=== PATIENT | female | born 1995 | race Caucasian/White ===

== ENCOUNTER 2016-09-01 00:51 | Emergency (ER) | payer OTHER, BC ==
[2016-09-01 00:55] VITALS: BP 124/77
--- NOTE | 2016-09-01 01:18 | PHYS DOC ---
Adult General Chief Complaint Chief Complaint: scalp laceration HPI HPI Patient is a 21 year old female who presents with complaint of scalp laceration. Patient states that her injury happened at work. Patient states that she hit her her left scalp on a metal display hook at her work which caused a cut. This occurred approximately 1 hour prior to arrival. Patient states that she tried to apply pressure on the wound at home but states that the wound has continued lead. Patient denied any loss of consciousness as a result of her head injury. Patient is up-to-date on her tetanus immunization. Review of Systems Review of Systems Constitutional: Denies fever or chills [] Eyes: Denies change in visual acuity, redness, or eye pain [] HENT: Scalp laceration, denies nasal congestion or sore throat [] Integument: Denies rash or skin lesions [] Neurologic: Denies headache, focal weakness or sensory changes [] Allergies Allergies No known drug allergies Physical Exam Physical Exam Constitutional: Alert, afebrile, no acute distress. [] HENT: Normocephalic, 1 cm superficial laceration to left frontal scalp just superior to hairline, bilateral external ears normal, oropharynx moist, no oral exudates, nose normal. [] Eyes: PERRLA, EOMI, conjunctiva normal, no discharge. [] Skin: Warm, dry, no erythema, no rash. [] Extremities: No tenderness, no cyanosis, no clubbing, ROM intact, no edema. [] Neurologic: Alert and oriented X 3, normal motor function, normal sensory function, no focal deficits noted. [] Current Patient Data Vital Signs Vital Signs Date Time Temp Pulse Resp B/P (MAP) Pulse Ox O2 Delivery O2 Flow Rate FiO2 09/01/16 00:55 98.6 89 18 100 Room Air Lab Results Not performed EKG EKG Not performed [] Radiology/Procedures Radiology/Procedures Indication: Scalp laceration Procedure: The patient was placed in the appropriate position. The area was then cleansed with soap, water, and peroxide. The laceration was closed with a surgical staple. Total repaired wound length: 1 cm. Other Items: Staple count: 1 The patient tolerated the procedure without difficulty. Complications: None.[] Course & Med Decision Making Course & Med Decision Making Pertinent Labs and Imaging studies reviewed. (See chart for details) Patient's laceration was repaired as outlined in the procedure note. Advised patient follow-up in 5-7 days for removal of scalp staple. Advised return emergency department for any worsening symptoms. Patient voiced understanding and in agreement with treatment plan. Dragon Disclaimer Dragon Disclaimer This chart was dictated in whole or in part using Voice Recognition software in a busy, high-work load, and often noisy Emergency Department environment. It may contain unintended and wholly unrecognized errors or omissions. Departure Departure: Impression: Primary Impression: Scalp laceration Disposition: HOME, SELF-CARE Condition: IMPROVED Patient Instructions: Laceration Care, Adult, Staple Care and Removal Additional Instructions: Follow-up with your primary doctor in 5-7 days for removal of your staple. Return to the emergency department for any worsening symptoms. Problem Qualifiers Primary Impression: Scalp laceration Encounter type: initial encounter Qualified Codes: S01.01XA - Laceration without foreign body of scalp, initial encounter DONNA QUINTANILLA MD Sep 01, 2016 01:18
== END 2016-09-01 01:25 | disposition home or self-care (01) ==
LOC: EDBD 00:51 → ER 00:51
DX: S01.01XA Laceration without foreign body of scalp, initial encounter (principal); W45.8XXA Other foreign body or object entering through skin, initial encounter; Y93.89 Activity, other specified; Y99.8 Other external cause status; Y92.89 Other specified places as the place of occurrence of the external cause
CPT/HCPCS: 12001; 99283-25

== ENCOUNTER 2016-09-06 16:26 | Emergency (ER) | payer OTHER, BC ==
[2016-09-06 16:30] VITALS: BP 114/65
--- NOTE | 2016-09-06 17:06 | PHYS DOC ---
General Chief Complaint: SUTURE/STAPLE REMOVAL Stated Complaint: SUTURE REMOVAL Time Seen by MD: 16:37 Source: patient, old records Exam Limitations: no limitations Problems: History of Present Illness Initial Comments Patient is a 21-year-old female comes to the ED for staple removal. Patient states and ED records confirm patient came to the ED 5 days ago with an occipital laceration which was treated with 1 staple. She denies any further symptoms since the wound closure and has come for staple removal only. Timing/Duration: 1 week, other (5 days ago) Severity: mild Modifying Factors: improves with other Associated Symptoms: denies symptoms Past Medical History Medical History: no pertinent history Surgical History: appendectomy, cholecystectomy Social History Smoker: other (smoking status unknown) Alcohol: occasionally Drugs: none Review of Systems Constitutional: denies chills, denies diaphoresis, denies fever, denies malaise EENTM: denies eye pain, denies ear discharge, denies nose congestion, denies throat pain Respiratory: denies cough, denies shortness of breath Cardiovascular: denies chest pain, denies palpitations Gastrointestinal: denies diarrhea, denies nausea, denies vomiting Musculoskeletal: denies back pain, denies joint swelling, denies neck pain Skin: see HPI Psychiatric/Neurological: denies headache, denies numbness, denies paresthesia Physical Exam General Appearance: WD/WN, no apparent distress Neck: non-tender, supple Respiratory: normal breath sounds, no respiratory distress Extremities: non-tender, normal inspection Neurologic/Psychiatric: oil winterizer II-XII nml as tested, no motor/sensory deficits, alert, normal mood/affect, oriented x 3 Skin: normal color, warm/dry (1 staple noted left parietal with a healed wound scabbed over. No erythema swelling or fluctuance warmth or tenderness.) Orders, Labs, Meds 1 staple removed by RN, wound checked by me after removal there is no bleeding or discharge no new findings. I discussed wound care moving forward she expressed agreement and understanding. Departure Time of Disposition: 17:05 Disposition: 01 HOME, SELF-CARE Diagnosis: staple removal from occipital laceration Condition: GOOD Patient Instructions: Staple Removal, Care After Additional Instructions: Please review the patient education materials given to you by ED staff. You may see mild bleeding for the next 24 hours. If the wound reopens or you have profuse bleeding return to the ED immediately. Follow-up with your physician next week for recheck. Return to the ED with or changing symptoms. JÚNIOR DREW DO Sep 06, 2016 17:06
== END 2016-09-06 17:12 | disposition home or self-care (01) ==
LOC: ER 16:26
DX: S01.01XD Laceration without foreign body of scalp, subsequent encounter (principal); X58.XXXD Exposure to other specified factors, subsequent encounter; Y99.8 Other external cause status; Y92.89 Other specified places as the place of occurrence of the external cause
CPT/HCPCS: 99281

== ENCOUNTER 2021-05-14 14:56 | Emergency (ER) | payer BC, OTHER ==
[~2021-05-14] VITALS: Ht 180.3 cm; Wt 110.0 kg
--- NOTE | 2021-05-14 15:25 | PHYS DOC ---
Past History Past Medical History: No Pertinent History (MARSHALL LI DO) Past Surgical History: Appendectomy, Cholecystectomy (MARSHALL LI DO) Alcohol Use: Occasionally Drug Use: None (MARSHALL LI DO) General Adult EDM: Chief Complaint: SUICIDAL IDEATION HPI: HPI: 26-year-old female presents with suicidal thoughts. The patient does not have a specific plan. She is thought about a lot of different things. She has had a lot of stressors in her life with divorce, work issues, other previous past psychological stressors and not having any family that lives close. She has no previous suicide attempts. She is just losing hope and needs help. (MARSHALL LI DO) Review of Systems: Review of Systems: Constitutional: Denies fever or chills Eyes: Denies change in visual acuity HENT: Denies nasal congestion or sore throat Respiratory: Denies cough or shortness of breath Cardiovascular: Denies chest pain or edema GI: Denies abdominal pain, nausea, vomiting, bloody stools or diarrhea : Denies dysuria Musculoskeletal: Denies back pain or joint pain Integument: Denies rash Neurologic: Denies headache, focal weakness or sensory changes Endocrine: Denies polyuria or polydipsia Lymphatic: Denies swollen glands Psychiatric: Depression, suicidal thoughts. (MARSHALL LI DO) Physical Exam: PE: Constitutional: Well developed, well nourished, obese, no acute distress, non- toxic appearance. [] HENT: Normocephalic, atraumatic, bilateral external ears normal, oropharynx moist, no oral exudates, nose normal. [] Eyes: PERRLA, EOMI, conjunctiva normal, no discharge. [] Neck: Normal range of motion, no tenderness, supple, no stridor. [] Cardiovascular: Heart rate regular rhythm, no murmur [] Lungs & Thorax: Bilateral breath sounds clear to auscultation [] Abdomen: Bowel sounds normal, soft, no tenderness, no masses, no pulsatile masses. [] Skin: Warm, dry, no erythema, no rash. [] Back: No tenderness, no CVA tenderness. [] Extremities: No tenderness, no cyanosis, no clubbing, ROM intact, no edema. [] Neurologic: Alert and oriented X 3, normal motor function, normal sensory functi on, no focal deficits noted. [] Psychologic: Affect tearful, judgement normal, mood depressed. [] (MARSHALL LI DO) EKG: EKG: [] (MARSHALL LI DO) Radiology/Procedures: Radiology/Procedures: [] (MARSHALL LI DO) Heart Score: C/O Chest Pain: N/A Risk Factors: Risk Factors: DM, Current or recent (<one month) smoker, HTN, HLP, family h istory of CAD, obesity. Risk Scores: Score 0 - 3: 2.5% MACE over next 6 weeks - Discharge Home Score 4 - 6: 20.3% MACE over next 6 weeks - Admit for Clinical Observation Score 7 - 10: 72.7% MACE over next 6 weeks - Early Invasive Strategies (MARSHALL LI DO) Course & Med Decision Making: Course & Med Decision Making Pertinent Labs and Imaging studies reviewed. (See chart for details) The patient's labs are unremarkable. She is not . Her urinalysis is negative for infection. Her drug screen is positive for marijuana. She is medically stable for behavioral health evaluation. The PAT team has evaluated the patient and determined that she would benefit from inpatient care. The wolfgang jenkins is in agreement. I believe this is reasonable as well. Placement is pending at this time. I signed out to the manufacturing supervisor 2nd shift at 1800. [] (MARSHALL LI DO) Course & Med Decision Making Patient care handed off to me at checkout pending placement. Patient awake alert and oriented no acute distress, pleasant cooperative. Able to take p.o. Able to sleep. [facility] pending per PCR of Covid. PCR Covid negative. Patient verbalized understanding and agreed with plan of transfer to [facility]. (ELI HENRIQUEZ MD) Dragon Disclaimer: Dragon Disclaimer: This electronic medical record was generated, in whole or in part, using a voice recognition dictation system. (MARSHALL LI DO) Departure Departure: Impression: Primary Impression: Suicidal ideation [facility] Condition: STABLE Referrals: ERIKA PAGE MD (PCP) MARSHALL LI DO May 14, 2021 15:25 ELI HENRIQUEZ MD May 15, 2021 05:35
[2021-05-14 16:04] LABS: BASO % 0 % (0-3); EOS # 0.1 x10^3/uL (0.0-0.7); EOS % 2 % (0-3); HEMATOCRIT 39.7 % (36.0-47.0); HEMOGLOBIN 13.2 g/dL (12.0-15.5); LYMPH # 2.5 x10^3/uL (1.0-4.8); LYMPH % 40 % (24-48); MEAN CORPUSCULAR HEMOGLOBIN 32 pg (25-35); MEAN CORPUSCULAR HGB CONC 33 g/dL (31-37); MEAN CORPUSCULAR VOLUME 96 fL (79-100); MONO # 0.4 x10^3/uL (0.0-1.1); MONO % 6 % (0-9); NEUT # 3.3 x10^3uL (1.8-7.7); NEUT % 52 % (31-73); PLATELET COUNT 176 x10^3/uL (140-400); RED BLOOD COUNT 4.12 x10^6/uL (3.50-5.40); WHITE BLOOD COUNT 6.3 x10^3/uL (4.0-11.0)
[2021-05-14 16:05] LABS: BACTERIA,URINE 0 /HPF (0-FEW); CLARITY,URINE CLEAR; COLOR,URINE YELLOW; GLUCOSE,URINE NEG (NEG); NITRITE,URINE NEG (NEG); RBC,URINE 0 /HPF (0-2); SQUAMOUS EPITHELIAL CELL,UR OCC /LPF; UROBILINOGEN,URINE 0.2 mg/dL (0.2 mg/dL); WBC,URINE 0 /HPF (0-4)
[2021-05-14 16:10] LABS: AMPHETAMINE/METHAMPHETAMINE NEG (NEG); BARBITURATES NEG (NEG); BENZODIAZEPINES NEG (NEG); CANNABINOIDS POS (NEG); COCAINE NEG (NEG); METHADONE NEG (NEG); OPIATES NEG (NEG); PHENCYCLIDINE NEG (NEG)
[2021-05-14 16:12] LABS: CALCIUM 9.2 mg/dL (8.5-10.1); CREATININE 0.7 mg/dL (0.6-1.0); GFR 99.6; POTASSIUM 3.5 mmol/L (3.5-5.1)
[2021-05-14 16:17] LABS: ALBUMIN 4.2 g/dL (3.4-5.0); ALBUMIN/GLOBULIN RATIO 1.3 (1.0-1.7); TOTAL BILIRUBIN 0.3 mg/dL (0.2-1.0); TOTAL PROTEIN 7.5 g/dL (6.4-8.2)
[2021-05-14 16:18] LABS: INFLUENZA A PATIENT NEGATIVE (NEGATIVE); INFLUENZA B PATIENT NEGATIVE (NEGATIVE)
[2021-05-15 06:00] VITALS: BP 112/70
== END 2021-05-15 06:14 ==
LOC: ER 14:56
DX: R45.851 Suicidal ideations (principal); Z20.822 Contact with and (suspected) exposure to COVID-19
CPT/HCPCS: 80053; 80307; 81001; 81025; 85025; 87428; 99285; C9803; U0003